=== PATIENT | male | born 2000 | race African-American/Black ===

== ENCOUNTER 2021-11-22 15:59 | Emergency (ER) | payer MEDICAID ==
[~2021-11-22] VITALS: Ht 182.9 cm; Wt 78.0 kg
[2021-11-22 16:11] VITALS: BP 153/132
[2021-11-22 17:34] LABS: HEMATOCRIT. 37.4 % (42.0-52.0); HEMOGLOBIN. 12.7 g/dL (14.0-18.0); MEAN CORPUSCULAR HEMOGLOBIN 30.1 pg (28.0-32.0); MEAN CORPUSCULAR VOLUME 88.5 fL (80.0-94.0); MEAN PLATELET VOLUME 7.8 fl (7.4-10.4); PLATELET 290 x1000/uL (130-400); RED BLOOD CELL COUNT 4.23 mill/uL (4.7-6.1); RED CELL DISTRIBUTION WIDTH 13.7 % (11.6-14.6)
[2021-11-22 17:38] LABS: CHLORIDE 98 mEq/L (98-107)
[2021-11-22] MEDS ORDERED: CEPH500C2 MT (19:49)
[2021-11-22] MEDS ORDERED: IBUP-2029 MT (19:49)
[2021-11-22] MEDS ORDERED: IBUPROFEN 600MG TABLET PO ONE (20:00)
[2021-11-22 23:06] LABS: PLATELET ESTIMATE NORMAL
== END 2021-11-22 20:19 | disposition home or self-care (01) ==
LOC: ER 15:59
DX: R53.1 Weakness (principal); L98.499 Non-pressure chronic ulcer of skin of other sites with unspecified severity; R00.0 Tachycardia, unspecified; R03.0 Elevated blood-pressure reading, without diagnosis of hypertension; R53.83 Other fatigue; F15.90 Other stimulant use, unspecified, uncomplicated; F11.90 Opioid use, unspecified, uncomplicated
CPT/HCPCS: 36415; 80053; 85025; 93005; 99284